=== PATIENT | female | born 1955 | race Caucasian/White ===

== ENCOUNTER → 2017-08-03 | Outpatient (CLI) | payer MEDICARE, MEDICAID, SELFPAY | PROVIDERS: PCP Internal Medicine Adolescent Medicine; Visit Provider Internal Medicine Adolescent Medicine | DX: Z12.31 Encounter for screening mammogram for malignant neoplasm of breast (principal) | CPT/HCPCS: 77067; G0202 ==

== ENCOUNTER → 2017-08-10 | Outpatient (CLI) | payer MEDICARE, MEDICAID, SELFPAY | PROVIDERS: Visit Provider Otolaryngology | DX: H65.22 Chronic serous otitis media, left ear (principal) | CPT/HCPCS: 70486 ==

== ENCOUNTER → 2017-10-04 14:25 | Outpatient (CLI) | payer MEDICARE, MEDICAID, SELFPAY ==
--- NOTE | 2017-10-04 14:29 | CT_ITS ---
CT mastoid W/O INDICATION: Chronic mastoiditis on the left worsening the last 4 months ORDERING PHYSICIAN: Robin Castillo MD PATIENT AGE: 62 years COMPARISON: 08/10/2017 TECHNIQUE: Axial images are obtained without contrast. Sagittal and coronal reformatted images are reviewed as well. FINDINGS: There remains a defect within the floor and lateral wall the left mastoid sinus with thinning of the posterior wall the mastoid sinus with abnormal soft tissue density filling the defect. These findings are consistent with postinflammatory/postsurgical changes. Soft tissue density extends into the middle ear canal as noted previously. The thin section images are reviewed showing severe thinning of the posterior and superior wall of the left mastoid sinus with some cortical irregularity. The middle ear ossicles are not well delineated. Only a fragment of a small ossicle is noted at the region of the tympanic membrane as before. No new areas of destruction are evident. No obvious intracranial mass. The right mastoid sinus is unremarkable as are the paranasal sinuses. IMPRESSION: Overall no significant change in the postsurgical/destructive process involving the left mastoid sinus with soft tissue density within the mastoid sinus extending into the middle ear with severe thinning of the posterior and superior wall of the mastoid sinus/calvarium similar to the previous exam.
== END ==
PROVIDERS: Family Provider Internal Medicine Adolescent Medicine; PCP Internal Medicine Adolescent Medicine; Visit Provider Otolaryngology
DX: H70.12 Chronic mastoiditis, left ear (principal)
CPT/HCPCS: 70486

== ENCOUNTER → 2017-10-12 15:51 | Outpatient (CLI) | payer MEDICARE, MEDICAID, SELFPAY ==
[2017-10-12 16:10] LABS: Basophils % 0.4 % (0.1-2.0); Eosinophils # 0.2 K/mm3 (0.0-0.4); Hemoglobin 13.5 g/dL (12.2-16.2); Lymphocytes # 2.1 K/mm3 (0.7-4.5); Lymphocytes % 23.4 K/mm3 (10-50); Mean Corpuscular HGB Conc 32.2 g/dL (31.8-35.4); Mean Corpuscular Hemoglobin 27.7 pg (27.0-31.2); Mean Corpuscular Volume 85.8 fl (81-99); Mean Platelet Volume 9.7 fl (7.4-10.4); Monocytes # 0.5 K/mm3 (0.1-1.0); Monocytes % 5.1 % (1.7-9.3); Neutrophils # 6.2 K/mm3 (1.8-7.8); Neutrophils % 69.2 % (37.0-80.0); Platelet Count 169 K/mm3 (142-424); Red Blood Count 4.89 M/mm3 (4.20-5.40); Red Cell Distribution Width 14.6 % (11.5-17.5)
[2017-10-12 19:16] LABS: Alanine Aminotransferase 27 U/L (12-78); Albumin Level 3.5 gm/dL (3.4-5.0); Albumin/Globulin Ratio 0.9 (1.1-1.8); Alkaline Phosphatase 140 U/L (46-116); Anion Gap 13.5 mEq/L (5-15); Aspartate Amino Transferase 12 U/L (15-37); Bilirubin,Total 0.1 mg/dL (0.2-1.0); Blood Urea Nitrogen 15 mg/dL (7-18); Calcium 8.6 mg/dL (8.5-10.1); Carbon Dioxide 29 mmol/L (21.0-32.0); Chloride 104 mmol/L (98-107); Creatinine,Serum 0.73 mg/dL (0.55-1.02); Estimated Glomerular Filt Rate 81 ml/min (>60); GFR (African American) 98 ML/MIN (>60); Globulin 4.1 gm/dl (1.3-3.2); Glucose 99 mg/dL (74-106); Potassium 4.5 mmoL/L (3.5-5.1); Sodium 142 mmol/L (136-145); Total Protein,Serum 7.6 gm/dL (6.4-8.2)
== END ==
PROVIDERS: Visit Provider Otolaryngology
DX: Z01.818 Encounter for other preprocedural examination (principal); H70.12 Chronic mastoiditis, left ear
CPT/HCPCS: 36415; 80053; 85025; 93005

== ENCOUNTER 2017-10-19 09:56 | Day surgery (SDC) | payer MEDICARE, MEDICAID, SELFPAY ==
[2017-10-18 11:02] VITALS: BMI 25.7
[2017-10-19] VITALS (11 sets, daily range): BP systolic 128–154; BP diastolic 74–97; PULSE 87–115; RESP 12–20; TEMP 36.5–36.8; O2SAT 95–99
--- NOTE | 2017-10-19 11:23 | HMH.ANESCL ---
[facility] Anesthesia Checklist - Structural Data Admitted From: Home Planned Operative Procedure/s: l mastoid debridement Consent for Planned Operative Procedure(s) Verified: Yes Verified Documents: Surgical Consent - Airway Assessment C-Spine Mobility Assessed: Yes TMJ Mobility Assessed: Yes Dentition: Poor Dentition - Neurological Assessment Level of Consciousness: Awake, Alert - Anesthesia Plan Anesthesia Risk discussed: Yes Anesthesia Plan: Verified ASA Class: II Anesthesia Type: General [facility] Anesthesia HX I have reviewed the patient's past medical history: Yes Medical History: Reports:: Cancer (kidneys) Denies:: Diabetes Mellitus Type 1, Diabetes Mellitus Type 2, MRSA, Seizures Other Medical History: Denies: Blood Transfusion Reaction Laterality Cases: Right: Myringotomy (Ear Tubes) Amputation: No Fractures: No *Family Hx:: Coronary Artery Disease, Diabetes, Kidney Disease, Stroke
--- NOTE | 2017-10-19 11:23 | HMH.ANESI ---
[facility] Anesthesia Record Part I Intake, IV Amount: 500 Estimated blood loss (mL): 0 Urine output (mL): 0 Blood Pressure: 154/93 SaO2: 99 Pulse Rate: 101 Respiratory Rate: 12 Temperature: 97.7 F Patient is:: Awake, Stable Stable to PACU at:: 11:25
--- NOTE | 2017-10-19 11:24 | HMH.ANESII ---
[facility] Anesthesia Record Part II Discharge Time: 11:55 Destination: [facility] PACU nurse assessment reviewed?: Yes Patient Condition:: Good Anesthesia Complications:: None
--- NOTE | 2017-10-19 11:25 | P.PN_ITS ---
[facility] Anesthesia Record Part II Discharge Time: 11:55 Destination: [facility] PACU nurse assessment reviewed?: Yes Patient Condition:: Good Anesthesia Complications:: None
--- NOTE | 2017-10-20 11:20 | HMH.OPNOTE ---
Date of procedure: 10/19/17 Pre-op Diagnosis:: 1. Chronic left mastoiditis 2. left chronic tympanic membrane perforation Post-op Diagnosis:: SAME Procedure performed:: Microdebridement left mastoid Surgeon:: Robin Castillo MD TAX SERVICES SPECIALIST:: Paul Dias Anesthesia: GETA Estimated blood loss (mL): 0 Operative findings:: same Operative note:: Using the operating microscope for all the procedure, the left ear was prepped and draped. Using The suction apparatus, the right mastoid was micro-debrided including an epitympanic mastoid pocket. The ear was thoroughly irrigated. There was a chronic right tympanic membrane perforation with some polypoid tissue in the mesotympanum. Ciprodex drops were applied. The patient was sent to recovery in good general condition. Condition: stable Disposition: PACU Complications:: none
--- NOTE | 2017-10-20 11:25 | P.OP_ITS ---
Date of procedure: 10/19/17 Pre-op Diagnosis:: 1. Chronic left mastoiditis 2. left chronic tympanic membrane perforation Post-op Diagnosis:: SAME Procedure performed:: Microdebridement left mastoid Surgeon:: Robin Castillo MD WOODWORK TEACHER:: Paul Dias Anesthesia: GETA Estimated blood loss (mL): 0 Operative findings:: same Operative note:: Using the operating microscope for all the procedure, the left ear was prepped and draped. Using The suction apparatus, the right mastoid was micro-debrided including an epitympanic mastoid pocket. The ear was thoroughly irrigated. There was a chronic right tympanic membrane perforation with some polypoid tissue in the mesotympanum. Ciprodex drops were applied. The patient was sent to recovery in good general condition. Condition: stable Disposition: PACU Complications:: none
== END 2017-10-19 12:35 | disposition home or self-care (01) ==
LOC: OR 09:57
PROVIDERS: Family Provider Internal Medicine Adolescent Medicine; PCP Internal Medicine Adolescent Medicine; Visit Provider Otolaryngology
DX: H70.12 Chronic mastoiditis, left ear (principal); H72.92 Unspecified perforation of tympanic membrane, left ear
CPT/HCPCS: 69220; 96374; 96375